=== PATIENT | female | born 1945 | race Caucasian/White ===

== ENCOUNTER 2021-05-12 19:02 | Emergency (ER) | payer MEDICARE, OTHER, SELFPAY ==
[2021-05-12] VITALS (19 sets, daily range): BP systolic 88–115; BP diastolic 45–58; PULSE 62–94; RESP 12–23; TEMP 36.8; O2SAT 94
--- NOTE | ~2021-05-12 | XR_ITS ---
EXAMINATION: XR chest 2V DATE: 05/12/2021 19:52 INDICATION: Chest pain. TECHNIQUE: Frontal and lateral views of the chest were obtained. COMPARISON: None. FINDINGS: The chest demonstrates clear lungs without pneumonia, pleural effusion, or pneumothorax. Th e heart size is normal. There are surgical clips in the abdomen. IMPRESSION: 1. No acute cardiopulmonary disease. Reviewed, dictated and finalized at location A.
--- NOTE | 2021-05-12 19:12 | ECG_ITS ---
Measurements Intervals [place] Rate: 73 P: 36 IN: 142 QRS: -37 QRSD: 178 T: 138 QT: 443 QTc: 490 Interpretive Statements SINUS RHYTHM POSSIBLE LEFT ATRIAL ENLARGEMENT LEFT AXIS DEVIATION LEFT BUNDLE BRANCH BLOCK BASELINE ARTIFACT- II, III, AVR, AVF, V3-V6 ABNORMAL ECG Electronically Signed On 05-12-2021 21:45:47 CDT by Schuyler Suarez D.O.
--- NOTE | 2021-05-12 19:15 | ED.CHESTPAIN ---
HPI - Chest Pain General Chief Complaint: Chest Pain Stated Complaint: CP Time Seen by Provider: 05/12/21 19:11 History of Present Illness HPI narrative: 76 yo female w/ h/o CAD, htn s/p coronary stenting presents to the ED c/o chest pain. Left sided chest pressure for about the past 2 hours. Radiates to left arm. Started while eating dinner. Worse with exertion. Associated with nausea. Similar to anginal pain that she had previously. She was told not to take aspirin due to an ulcer. Related Data Home Medications Medication Instructions Recorded Confirmed metoprolol tartrate 05/12/21 omeprazole [Prilosec] 05/12/21 sucralfate [Carafate] 05/12/21 Allergies Allergy/AdvReac Type Severity Reaction Status Date / Time cortisone Allergy Flushing Verified 05/12/21 20:06 morphine Allergy Rash Verified 05/12/21 20:06 Review of Systems Review of Systems: All systems reviewed & are unremarkable except as noted in HPI and below ENT: Reports system reviewed and no additional complaints, except as documented Cardiovascular: Cardiovascular: Reports as per HPI Respiratory: Respiratory: Denies dyspnea Gastrointestinal: Gastrointestinal: Reports nausea and Denies vomiting Genitourinary: Genitourinary: Reports no additional female genitourinary complaints Musculoskeletal: Musculoskeletal: Reports no additional musculoskeletal complaints Neurologic: Reports system reviewed and no additional complaints, except as documented [facility] Past Medical History Medical History (Updated 05/14/21 @ 00:00 by Background Daemon) CAD (coronary artery disease) HTN (hypertension) Surgical History Surgical History (Updated 05/12/21 @ 20:14 by Kash Murphy MD) Stented coronary artery Social History Social History (Updated 05/12/21 @ 20:14 by Kash Murphy MD) Smoking status: Never smoker Exam Const: General: healthy appearing, no acute distress and alert Orientation/consciousness: patient oriented x3 HENMT: Head: normal to inspection Neck: Neck: normal visual inspection and no JVD Chest: Chest palpation & inspection: no tenderness Resp: Effort & Inspection: normal respiratory effort Auscultation: clear to auscultation bilaterally, no rales, no rhonchi and no wheezes Cardio: Jugular venous distension: no JVD Rate: regular rate Rhythm: regular rhythm Heart sounds: Murmur heart sound present systolic harsh and at the left sternal border GI: Inspection: non-distended GI Palp: Yes Soft to palpation and No Tenderness to palpation present (GI) Skin: General skin exam: normal color Neuro: General: patient oriented x3 and moves all extremities Speech: normal speech Extrem: General: no edema Psych: Appearance: well kempt Affect: normal affect Course Vital Signs Vital signs: Vital Signs Temperature 36.8 C 05/12/21 19:02 Pulse Rate 74 05/12/21 19:02 Respiratory Rate 20 05/12/21 19:02 Blood Pressure 88/45 L 05/12/21 19:02 Pulse Oximetry 94 05/12/21 19:02 Temperature 36.8 C 05/12/21 19:02 Pulse Rate 62 05/13/21 00:01 Respiratory Rate 20 05/13/21 00:01 Blood Pressure 130/55 L 05/13/21 00:01 Pulse Oximetry 95 05/13/21 00:01 MDM - Chest Pain MDM Narrative Medical decision making narrative: Nothing acute on EKG. Pain relieved by GI cocktail. Pateint now believes that GERD was the most liekly cause. Troponin negative x2. I discussed admission with the pateint and her daughter. They would prefer to be discharged and will return if symptoms come back. Medical Records Data Attestation: I reviewed the patient's medical records. Lab Data Attestation: I reviewed the patient's lab results. Result diagrams: 05/12/21 20:11 05/12/21 20:11 Labs: Lab Results 05/12/21 05/12/21 05/12/21 Range/Units 20:10 20:11 20:11 WBC 7.3 (4.5-10.0) K/mm3 RBC 3.66 L (4.2-5.4) M/mm3 Hgb 10.7 L (12.0-15.0) g/dL Hct 33.8 L (37.0-47.
--- NOTE | 2021-05-12 19:18 | PC.NURSE ---
Patient on bedpan at this time. States she needs to have a BM. Family at bedside.
[2021-05-12 20:21] LABS: Basophils Percent Auto 0.4 % (0.2-1.2); Eosinophils Absolute Auto 0.1 K/mm3 (0-0.3); Eosinophils Percent Auto 1.9 % (0-4.4); Hematocrit 33.8 % (37.0-47.0); Hemoglobin 10.7 g/dL (12.0-15.0); Immature Granulocyte Absolute 0.02 K/mm3 (0.00-0.031); Immature Granulocyte Percent A 0.3 % (0-0.5); Lymphocytes Absolute Auto 1.15 K/mm3 (0.9-3.2); Lymphocytes Percent Auto 15.8 % (18.3-44.2); Mean Corpuscular HGB Conc 31.7 g/dl (32-36); Mean Corpuscular Hemoglobin 29.2 pg (26-34); Mean Corpuscular Volume 92.3 fl (80-100); Mean Platelet Volume 9.8 fl (7.4-10.4); Monocytes Absolute Auto 0.8 K/mm3 (0.1-0.6); Monocytes Percent Auto 10.9 % (2.6-8.5); Neutrophils Absolute Auto 5.1 K/mm3 (1.3-6.7); Neutrophils Percent Auto 70.7 % (45.5-73.1); Platelet Count Result 230 k/mm3 (150-375); Red Blood Count 3.66 M/mm3 (4.2-5.4); Red Cell Distribution Width 13.7 % (11.5-14.5); White Blood Count 7.3 K/mm3 (4.5-10.0)
[2021-05-12] MEDS: fentaNYL CITRATE INJ (*CRX) 100 MCG/2 ML VIAL 25 MCG IV PUSH (20:23)
[2021-05-12] MEDS: SODIUM CHLORIDE 0.9% IV 500 ML 999 ML IV CONT (20:23)
[2021-05-12 20:31] LABS: Anion Gap 8 mmol/L (8-16); Blood Urea Nitrogen 18 mg/dL (7-17); Calcium 8.9 mg/dL (8.4-10.2); Carbon Dioxide 25 mmol/L (22-30); Chloride 107 mmol/L (98-107); Estimated CRCL calculation 64 ml/min; Estimated Glomerular Filt Rate > 60; Glucose 87 mg/dL (65-110); Potassium 2.9 mmol/L (3.4-5.0); Sodium 140 mmol/L (137-145)
[2021-05-12 20:32] LABS: Prothrombin Time 13.1 Seconds (11.1-14.7)
[2021-05-12 20:43] LABS: Troponin I < 0.012 ng/mL (0.000-0.034)
--- NOTE | 2021-05-12 21:17 | PC.NURSE ---
Called Bea in lab to see why blue top tube did not result, she stated she will result it.
[2021-05-12 23:26] LABS: Troponin I < 0.012 ng/mL (0.000-0.034)
[2021-05-13 00:01] VITALS: BP 130/55; PULSE 62; RESP 20; O2SAT 95
== END 2021-05-13 01:17 | disposition home or self-care (01) ==
PROVIDERS: Emergency Provider Emergency Medicine
DX: R07.89 Other chest pain (principal); I25.10 Atherosclerotic heart disease of native coronary artery without angina pectoris; I10 Essential (primary) hypertension; Z95.5 Presence of coronary angioplasty implant and graft; I44.7 Left bundle-branch block, unspecified; R94.31 Abnormal electrocardiogram [ECG] [EKG]
CPT/HCPCS: 36415; 71046; 80048; 84484; 85025; 85610; 85730; 93005; 96374; 99284; A9270; J3010; J7040